=== PATIENT | male | born 2000 | race Two or more races ===

== ENCOUNTER 2022-11-01 10:12 | Emergency (ER) | payer MEDICAID, OTHER ==
[~2022-11-01] VITALS: Ht 190.5 cm; Wt 151.5 kg
[2022-11-01 10:35] VITALS: BP 154/110
[2022-11-01] MEDS ORDERED: TETANUS-DIPTH-ACEL PERTUSSIS 0.5ML SYR Tdap IM ONE (10:45)
[2022-11-01] MEDS ORDERED: CEPH-510 PO (11:00)
== END 2022-11-01 11:01 | disposition home or self-care (01) ==
LOC: ER 10:12
DX: S61.531A Puncture wound without foreign body of right wrist, initial encounter (principal); W26.8XXA Contact with other sharp object(s), not elsewhere classified, initial encounter; W45.8XXA Other foreign body or object entering through skin, initial encounter; Y93.89 Activity, other specified; Y92.89 Other specified places as the place of occurrence of the external cause; Y99.8 Other external cause status
CPT/HCPCS: 90471; 90715